=== PATIENT | male | born 1995 | race African-American/Black ===

== ENCOUNTER 2020-10-20 15:34 | Inpatient (IN) | payer OTHER ==
[~2020-10-20] VITALS: Ht 180.3 cm; Wt 77.3 kg
[2020-10-20 18:07] LABS: HEMATOCRIT 42.8 % (42.0-52.0); HEMOGLOBIN 14.2 g/dl (13.5-17.5); MEAN CORPUSCULAR HEMOGLOBIN 30.5 pg (27.0-33.0); MEAN CORPUSCULAR HGB CONC 33.2 g/dl (32.0-36.5); PLATELET COUNT, AUTOMATED 241 10^3/uL (150-450); RED BLOOD COUNT 4.65 10^6/uL (4.30-6.10); WHITE BLOOD COUNT 4.8 10^3/uL (4.0-10.0)
[2020-10-20 18:35] LABS: AMPHETAMINES LEVEL URINE NEGATIVE (NEGATIVE); BARBITURATES URINE NEGATIVE (NEGATIVE); BENZODIAZEPINES URINE NEGATIVE (NEGATIVE); CANNABINOIDS URINE NEGATIVE (NEGATIVE); COCAINE METABOLITE URINE NEGATIVE (NEGATIVE); METHADONE URINE NEGATIVE (NEGATIVE); OPIATES URINE NEGATIVE (NEGATIVE); PHENCYCLIDINE URINE NEGATIVE (NEGATIVE)
[2020-10-20 18:50] LABS: ACETAMINOPHEN LEVEL < 2.0 UG/ML (10.0-30.0); ALBUMIN 4.1 GM/DL (3.2-5.2); ALT/SGPT 18 U/L (12-78); BILIRUBIN,DIRECT 0.2 MG/DL (0.0-0.2); BILIRUBIN,TOTAL 1.2 MG/DL (0.2-1.0); BLOOD UREA NITROGEN 11 MG/DL (7-18); CALCIUM LEVEL 9.2 MG/DL (8.5-10.1); CARBON DIOXIDE LEVEL 28 MEQ/L (21-32); CHLORIDE LEVEL 106 MEQ/L (98-107); CREATININE FOR GFR 1.09 MG/DL (0.70-1.30); ETHYL ALCOHOL (ETHANOL) < 0.003 % (0.000-0.010); GLOMERULAR FILTRATION RATE > 60.0 (>60); GLUCOSE, FASTING 83 MG/DL (70-100); POTASSIUM SERUM 3.7 MEQ/L (3.5-5.1); SALICYLATE LEVEL < 1.7 MG/DL (5.0-30.0); SODIUM LEVEL 139 MEQ/L (136-145); THYROID STIMULATING HORMONE 0.624 uIU/ML (0.358-3.740); TOTAL PROTEIN 7.9 GM/DL (6.4-8.2)
[2020-10-21] MEDS ORDERED: MOM 30ML SUSPENSION UDC PO PRN (22:10)
[2020-10-21] MEDS ORDERED: ACETAMINOPHEN TAB 650MG DOSE (2X325MG) PO PRN (22:10)
[2020-10-21] MEDS ORDERED: traZODone 50 MG TAB PO PRN (22:10)
[2020-10-21] MEDS ORDERED: MAALOX 30 ML SUSP *UDC PO PRN (22:10)
[2020-10-22 06:57] VITALS: BP 109/52
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
[2020-10-22 16:23] VITALS: BP 112/72
--- NOTE | 2020-10-22 19:25 | HPEPDOC ---
[facility] Medical History & Physical Date of Admission October 21, 2020 Date of Service: October 22, 2020 History and Physical CHIEF COMPLAINT: Suicidal ideation HISTORY OF PRESENT ILLNESS: Mr. Freed is a 25 year old male who is in the inpatient mental health unit for suicidal ideation. He was seen this afternoon in his room. He was feeling well without complaints. Denies any chest pain, dyspnea, abdominal pain, dysuria, or diarrhea. He has no further questions or concerns PAST MEDICAL HISTORY: Patient denies any past medical history (such as hypertension, thyroid issues, or diabetes) PAST SURGICAL HISTORY: Patient denies any past surgeries SOCIAL HISTORY: Tobacco use: Denies ETOH: Denies Illicit drug use: Denies FAMILY HISTORY: Father: Denies past medical history in father Mother: Denies past medical history in mother ALLERGIES: Please see below. REVIEW OF SYSTEMS: CONSTITUTIONAL: Denies any fever or chills. ENT: Denies sore throat. RESPIRATORY: Denies shortness of breath. Denies cough. CARDIOVASCULAR: Denies chest pain. GASTROINTESTINAL: Denies abdominal pain. Denies diarrhea. GENITOURINARY: Denies dysuria. CUTANEOUS: Denies rashes. MUSCULOSKELETAL: Denies muscle weakness. NEUROLOGICAL: Denies neuropathy. Denies paresthesias. PSYCHOLOGICAL: Denies anxiety. Denies depression. HOME MEDICATIONS: Please see below. PHYSICAL EXAMINATION: VITAL SIGNS: Temperature 99.1, pulse 89, respiratory rate 16, blood pressure 112/72, pulse oximetry 96% on room air. GENERAL: Comfortable, in no apparent distress. HEENT: Head normocephalic/atraumatic, EOMI, sclera clear. NECK: Supple, no JVD. RESPIRATORY: Lungs clear to auscultation bilaterally, no rales, wheeze or rhonchi. CARDIOVASCULAR: Regular rate and rhythm. ABDOMEN: Soft, nontender, no guarding or rebound tenderness. Normal bowel sounds. MUSCLE SKELETAL: Muscle strength 5/5 in all extremities. NEUROLOGICAL: CN 312 grossly intact, no focal deficits noted. PSYCHOLOGICAL: Normal mood and affect LABORATORY DATA: See below. IMAGING: None MICROBIOLOGY: Please see below. ASSESSMENT and PLAN: 1. Suicidal ideation -Being managed in the inpatient mental health unit 2. COVID 19 positive status -Patient is asymptomatic and doing well at room air -Monitor and self isolate Thank you for consulting us. We will sign off at this time. If there are any further questions or concerns, please do not hesitate to reconsult us. Vital Signs Vital Signs Date Time Temp Pulse Resp B/P (MAP) Pulse Ox O2 Delivery O2 Flow Rate FiO2 10/22/20 16:23 99.1 89 16 112/72 (85) 96 Room Air Laboratory Data Microbiology Microbiology 10/20/20 Respiratory Virus Panel (PCR) (ORESTES) - Final, Complete SARS-CoV-2 (COVID 19) Home Medications No Active Prescriptions or Reported Meds Allergies Coded Allergies: No Known Allergies (Unverified , 10/20/20) A-FIB/CHADSVASC A-FIB History Current/History of A-Fib/PAF?: No Age/Risk Factor Scoring CHADSVASC: CHADSVASC Response (Comments) Value Gender Risk Factor Male 0 Hx of CHF No 0 Hx of HTN No 0 Hx of Stroke/TIA/or VTE No 0 Hx of Diabetes No 0 Hx of Vascular Disease No 0 Total 0 CHANTE DAVEY DO October 22, 2020 19:25
[2020-10-23 06:00] VITALS: BP 128/71
--- NOTE | 2020-10-23 14:17 | MHIPN ---
[facility] PROGRESS NOTE DATE: 10/23/2020 VITAL SIGNS: Blood pressure 128/71, pulse 77, temperature 98. This is a video assessment. I am at home. He is in the inpatient unit at [facility]. He is aware of the limitations. CHIEF COMPLAINT: Says feels okay. SUBJECTIVE: Seen for followup. Indicates has been feeling okay and that he has generally been doing well. Moods have been okay. Sleep is improved. Says has had time to think about things while in hospital. MENTAL STATUS EXAMINATION: Neat, cooperative. No agitation. No psychomotor retardation. Coherent. Affect is restricted in range but reactive. No evidence of any thoughts of harming himself or anyone else. No evidence of any psychosis. Cognition grossly intact. Judgment and insight improved. ASSESSMENT: Adjustment disorder with mixed disturbance of emotions and conduct. PLAN: Continue current care, observation, and I would tend to agree at this point, no convincing need for a scheduled psychotropic. He is to be encouraged to participate in activities in the unit. He is to be discharged with followup should current progress continue. Anticipate discharge soon.
[2020-10-23 16:07] VITALS: BP 124/65
[2020-10-24 06:04] VITALS: BP 107/57
[2020-10-24 16:15] VITALS: BP 117/66
[2020-10-25 06:12] VITALS: BP 117/65
--- NOTE | 2020-10-25 10:07 | MHIPNPDOC ---
[facility] Progress Note Progress Note DATE OF SERVICE: 10/25/20 The patient reports that he is doing fine and he has no new issues and denies any suicidal thoughts, plan or intent. He is in no acute distress and does not have any symptoms of the virus infection is eating okay. He is anxious to return to his unit does not feel he needs any medicine for his depression and does not feel that he is clinically depressed. He is in good control and in no acute distress. HISTORY: . VITAL SIGNS: See below. NEW TEST RESULTS: . CURRENT MEDICATIONS: See below. MENTAL STATUS EXAMINATION: Patient is a 25-year old male, who is , cooperative. Speech: Is , coherent, relevant. Language skills are fair. Thought processes including: , Organized. Thought content: No suicidal thoughts. Abstract reasoning, and computation: Fair. Description of associations: , Organized. Description of abnormal or psychotic thoughts: None. Judgment: Fair. Insight: [fair. Orientation: , Oriented. Recent and remote memory: Good. Attention span and concentration: Fair. Language: . Fund of knowledge: . Mood: Euthymic. Affect: Appropriate . DIAGNOSES: 1. . Adjustment disorder with mixed emotion 2. . 3. . ASSESSMENT:] Does not appear clinically depressed or suicidal MANAGEMENT PLAN: .. Supportive therapy. Plan to discharge him tomorrow TIME SPENT: [20] minutes. Vital Signs Vital Signs Date Time Temp Pulse Resp B/P (MAP) Pulse Ox O2 Delivery O2 Flow Rate FiO2 10/25/20 06:12 98.6 77 16 117/65 (82) 99 Room Air Current Medications Current Medications Medications (Trade) Dose Ordered Sig/Keeley Route PRN Reason Start Time Stop Time Status Last Admin Dose Admin Acetaminophen (Tylenol Tab) 650 mg Q6HP PRN PO HEADACHE or DISCOMFORT 10/21/20 22:10 Al Hydrox/Mg Hydrox/Simethicone (Mylanta) 30 ml Q4HP PRN PO HEARTBURN/INDIGESTION 10/21/20 22:10 Home Med (Med Rec Complete!) ASDIRECTED XX 10/20/20 20:30 10/20/20 20:28 DC Magnesium Hydroxide (Milk Of Magnesia) 30 ml DAILYPRN PRN PO CONSTIPATION 10/21/20 22:10 Trazodone HCl (Desyrel) 50 mg QHSP PRN PO INSOMNIA 10/21/20 22:10 Allergies Coded Allergies: No Known Allergies (Unverified , 10/20/20) LYNDON TOTH M.D. October 25, 2020 10:07
[2020-10-26 06:47] VITALS: BP 116/59
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
--- NOTE | 2020-10-26 12:51 | MHIPN ---
[facility] PROGRESS NOTE DATE: 10/24/2020 VITAL SIGNS: Blood pressure 117/66, pulse 70, temperature 96. This is a video assessment. He is in the inpatient psychiatry unit. I am at home. He is seen in the presence of staff. CHIEF COMPLAINT: Says feels okay. SUBJECTIVE: Seen for followup. Indicates feels okay and that his mood are good. Sleeps well. Appetite is good. Says he spoke with his fiance recently and his mother, and that went well. MENTAL STATUS EXAMINATION: He is neat, cooperative, though either superficially so or guarded. Answers questions briefly, coherently, logically. Affect is restricted in range. Denies any suicidal thoughts or intents. No homicidal ideas or intents. No evidence of any psychosis. Cognition intact. Judgment and insight possibly improved. ASSESSMENT: Adjustment disorder with mixed disturbance of emotions and conduct. PLAN: Continue current care, observations. I would suggest obtaining collateral information. He will be seeing the assigned clinician tomorrow.
== END 2020-10-26 13:23 | disposition home or self-care (01) | DRG 882 ==
LOC: M ED 15:34 → M ED INP 10-21 22:07 → M PSY 10-21 23:19
PROVIDERS: ADMIT Psychiatry & Neurology Psychiatry; ATTEND Psychiatry & Neurology Psychiatry
DX: F43.25 Adjustment disorder with mixed disturbance of emotions and conduct (principal); U07.1 COVID-19; R45.851 Suicidal ideations; Z63.4 Disappearance and death of family member

== ENCOUNTER 2023-06-18 06:15 | Emergency (ER) | payer OTHER ==
[~2023-06-18] VITALS: Ht 177.8 cm; Wt 89.5 kg
[2023-06-18] MEDS ORDERED: IBUPROFEN 600MG TAB PO ONE (08:20)
[2023-06-18] MEDS ORDERED: IBUP-1022 PO (09:13)
[2023-06-18 09:18] VITALS: BP 133/68; TEMP 97.3; O2SAT 99
== END 2023-06-18 09:24 | disposition home or self-care (01) ==
LOC: EDBD 06:15 → M ED 06:15
DX: S30.0XXA Contusion of lower back and pelvis, initial encounter (principal); W00.9XXA Unspecified fall due to ice and snow, initial encounter; Y93.9 Activity, unspecified; Y92.9 Unspecified place or not applicable; Y99.8 Other external cause status